=== PATIENT | male | born 1950 | race Caucasian/White ===

== ENCOUNTER → 2020-01-12 | Outpatient (CLI) | payer BC ==
[~2020-01-12] MED LIST: AMLO10TA4 PO; ASCO100T4 PO; ASPI81TA59 PO; CRESTOR20 MG PO; LISI10TA2 PO; METF100010 PO; MULT-245 PO; NITR0.4T24 SL
== END ==
LOC: LAB 14:25
PROVIDERS: ATTEND Student in an Organized Health Care Education/Training Program
DX: Z01.812 Encounter for preprocedural laboratory examination (principal); Z20.828 Contact with and (suspected) exposure to other viral communicable diseases
CPT/HCPCS: U0003-CS

== ENCOUNTER → 2020-01-16 | Day surgery (SDC) | payer BC ==
[~2020-01-16] MED LIST changes: +IPRATRPIUM/ALBUTEROL 0.5/2.5MG 3 ML NEBU. NEB PRN; +IV RINGERS SOLUTION,LACTATED 1,000 ML IV SCH; +MIDAZOLAM HCL PF 2 MG/2 ML VIAL. IV ONE; +ONDANSETRON PF 4 MG/2 ML VIAL. IV PRN; +PROPOFOL 10,000 MCG/ML (20ML) VIAL IV ONE
[2020-01-16 08:51] VITALS: BP 114/57
== END | disposition home or self-care (01) ==
LOC: SURG 06:32
PROVIDERS: ATTEND Emergency Medicine
DX: Z12.11 Encounter for screening for malignant neoplasm of colon (principal); D12.3 Benign neoplasm of transverse colon; D12.2 Benign neoplasm of ascending colon; Z86.010 Personal history of colon polyps; Z88.8 Allergy status to other drugs, medicaments and biological substances; Z79.899 Other long term (current) drug therapy; Z79.82 Long term (current) use of aspirin
CPT/HCPCS: 43239; 43450; 45380; 82947; 88305; 88342; J2704; J7120